=== PATIENT | male | born 2000 | race Caucasian/White ===

== ENCOUNTER 2021-09-10 19:37 | Emergency (ER) | payer OTHER ==
[~2021-09-10] VITALS: Ht 175.3 cm; Wt 86.4 kg
[2021-09-10 19:38] VITALS: TEMP 99.5
[2021-09-10 20:26] VITALS: BP 164/105; PULSE 75
== END 2021-09-10 20:40 | disposition home or self-care (01) ==
LOC: COL.ER 19:37
DX: S43.014A Anterior dislocation of right humerus, initial encounter (principal); Z79.01 Long term (current) use of anticoagulants; W01.0XXA Fall on same level from slipping, tripping and stumbling without subsequent striking against object, initial encounter